=== PATIENT | female | born 1975 | race Two or more races ===

== ENCOUNTER 2025-02-04 18:36 | Emergency (ER) | payer MEDICAID, SELFPAY ==
[2025-02-04 18:38] VITALS: BMI 29.8
[2025-02-04 18:48] VITALS: BP 143/87; PULSE 76; RESP 16; TEMP 36.6; O2SAT 97
--- NOTE | 2025-02-04 19:00 | PD.EDRECHK ---
ED Recheck Abnl Lab Rx-RME/HPI General Chief Complaint: General Adult/Misc Complain Stated Complaint: SENT FOR A PETSCAN Time Seen by Provider: 02/04/25 18:47 Arrival date/time: 02/04/25 18:36 49F with no significant PMH presents to ED for PET scan after being sent by PCP. Initially some enlarged lymph nodes were found on mammogram greater than 1 year ago, which were also found on MRI. Patient has no symptoms/complaints. Limitations: no limitations Related Data Allergies Allergy/AdvReac Type Severity Reaction Status Date / Time aspirin Allergy RASH Verified 02/04/25 18:37 Review of Systems Review of Systems Systems Reviewed: All systems reviewed, normal except as documented Past Medical History Social History SMOKING STATUS: Never smoker ED Exam General Limitations: Present no limitations General appearance: Present alert and in no apparent distress Head Head exam: Present atraumatic Neck Neck exam: Present normal inspection, full ROM and trachea midline Chest Chest inspection: Present normal inspection and symmetric chest wall rise Neurological Exam Neurological exam: Present alert and oriented X3 Psychiatric Psychiatric exam: Present normal affect and normal mood Skin Skin exam: Present warm, dry, intact and normal color Course Quality Measures none Vital Signs Vital signs: Vital Signs Temperature 97.9 F 02/04/25 18:48 Pulse Rate 76 02/04/25 18:48 Respiratory Rate 16 02/04/25 18:48 Blood Pressure 143/87 H 02/04/25 18:48 Pulse Oximetry (%) 97 02/04/25 18:48 Oxygen Delivery Method Room Air 02/04/25 18:48 O2 at 97% on RA and WNLs Recheck / Abnormal Lab / Rx MDM Narrative MDM Narrative:: 49F with no significant PMH presents to ED for PET scan after being sent by PCP. Initially some enlarged lymph nodes were found on mammogram greater than 1 year ago, which were also found on MRI. Patient has no symptoms/complaints. Physical exam reveals well-appearing female. Patient is afebrile, calm, and alert. [employer] given that this needs to be done outpatient. Patient data External records reviewed:: [facility] previous records Clinical information provided by:: patient Social determinants that could affect healthcare access:: none Patient has the following chronic illnesses:: none How is presenting disease/condition affected by chronic disease/condition?: no chronic disease Evaluation data The following diagnostics were reviewed and interpreted by me:: other (specify) (none) Lab and/or radiology exams considered but not ordered:: not ordered Interpretation Summary: n/a Medications / Prescriptions Medications or Prescriptions considered but not ordered:: not ordered Medication administrations:: n/a Consultations Consultation(s) initiated? (list below): No Diagnosis Recheck Differential Diagnosis: encounter for medication refill, encounter for wound recheck, encounter for recheck of burn, encounter for removal of sutures, warfarin-induced coagulopathy and other (lymphadenopathy) Most likely diagnosis given after review of the tests above:: lymphadenopathy Admission Indicated Admission indicated?: not indicated Admission Request Was there a request for admission?: No Disposition Plan Disposition Plan: Discharge Discharge Attestation Discharge Attestation: The patient and all family members were given an opportunity to ask questions and understood the discharge instructions. Discharge instructions specifically effects, indications for sooner follow up or return to the emergency department, and the expected course of current diagnosis. Patient condition: Stable Discharge Plan Plan Patient Disposition: HOME (Self Care) Discharge Disposition comment: Stable Problem List Clinical Impression: Lymphadenopathy Patient/Caregiver Discharge Instructions Education Materials: Lymphadenopathy Additional Instructions: Please follow-up with PCP within 24-48 hours and return immediately if symptoms worsen. See PCP for outpatient PET scan order and/or biopsy of lymph nodes and/or referral to appropriate specialists. Print Language: Irish Stand Alone Forms: Patient Portal Info Letter ASHLEY/SANJU Supervising Physician YOHAN Supervising Physician: Dr. Rushing
== END 2025-02-04 19:50 | disposition home or self-care (01) ==
LOC: SERX 19:07
PROVIDERS: Emergency Provider Emergency Medicine; PCP Family Medicine
DX: R59.1 Generalized enlarged lymph nodes (principal)
CPT/HCPCS: 99281